=== PATIENT | male | born 1950 | race Hispanic/Latino ===

== ENCOUNTER 2017-08-30 15:19 | Emergency (ER) | payer SELFPAY ==
--- NOTE | 2017-08-30 16:10 | RAD REPORT ---
EXAM DESCRIPTION: Josiah Single View08/30/2017 4:04 pm CLINICAL HISTORY: Chest pain COMPARISON: none FINDINGS: The lungs appear clear of acute infiltrate. Nodular opacity within the left lung probably represents a granuloma. The heart is normal size IMPRESSION: No acute abnormalities displayed
[2017-08-30 16:46] LABS: Absolute Lymphocytes (CBC) 1.6 K/uL (0.7-4.9); Absolute Monocytes 0.5 K/uL (0.1-1.3); Basophils % 2.1 % (0-1.3); Eosinophils % 2.9 % (0-4.4); Hematocrit 31.8 % (39.6-49.0); Lymphocytes % 36.7 % (15.3-44.8); MCH 27.4 pg (27.0-35.0); MCV 86.6 fL (80-100); MPV 8.2 fL (7.6-11.3); RBC Red Blood Cell Count 3.68 M/uL (4.33-5.43)
[2017-08-30 16:49] LABS: Protime INR 1.11
[2017-08-30 17:01] LABS: Bicarbonate 25 mEq/L (21-31); Glucose Level 102 mg/dL (65-120); Lipase 32 U/L (22-51); Potassium 3.3 mEq/L (3.6-5.0); Sodium Level 139 mEq/L (135-145)
[2017-08-30 17:07] LABS: ALT/SGPT 28 IU/L (10-60); AST/SGOT 78 IU/L (10-42); Albumin 4.2 g/dL (3.2-5.5); Alkaline Phosphatase 127 IU/L (42-121); BUN Blood Urea Nitrogen 7 mg/dL (6-20); Bilirubin Direct 0.1 mg/dL (0-0.2); Bilirubin Total 0.4 mg/dL (0.3-1.2); Creatine Phosphokinase 383 IU/L (22-269); Magnesium 1.6 mg/dL (1.8-2.5); Protein, Total 8.6 g/dL (6.0-8.3)
[2017-08-30 17:10] LABS: CKMB Creatine Kinase MB 7.6 ng/ml (0.3-4.0)
[2017-08-30 17:13] LABS: Alcohol Serum/Plasma 184 mg/dl
[2017-08-30] MEDS ORDERED: THIAMINE 200 MG/2 ML INJ ONE (17:40)
[2017-08-30] MEDS ORDERED: POTASSIUM 25 MEQ EFFERV TAB ONE (17:40)
[2017-08-30] MEDS ORDERED: NA CHLORIDE 0.9% 1,000 ML ONE (17:40)
[2017-08-30] MEDS ORDERED: PANTOPRAZOLE 40 MG INJ ONE (17:40)
[2017-08-30] MEDS ORDERED: Magnesium Sulfate 2gm IVPB 2 G/50 ML BAG IV ONE (17:40)
[2017-08-30 18:20] LABS: Urine Blood NEGATIVE (NEG); Urine Glucose NEGATIVE (NEG); Urine Protein NEGATIVE (NEG); Urine pH 6.5 (5.0-7.0)
--- NOTE | 2017-08-30 19:08 | RAD REPORT ---
EXAM DESCRIPTION: CTAbdomen Pelvis W Contrast - 08/30/2017 7:02 pm CLINICAL HISTORY: Abdominal pain. COMPARISON: None. TECHNIQUE: Biphasic CT imaging of the abdomen and pelvis was performed with 100 ml non-ionic IV cont rast. All CT scans are performed using dose optimization technique as appropriate and may include automated exposure control or mA/KV adjustment according to patient size. FINDINGS: The lung bases are clear. The liver demonstrates diffuse fatty infiltration. The spleen, pancreas, adrenal glands and kidneys a re within normal limits. No bowel obstruction, free air, free fluid or abscess. Prominent colonic diverticulosis is seen witho ut diverticulitis. The appendix is normal. No evidence of significant lymphadenopathy. No suspicious bony findings. IMPRESSION: No acute intra-abdominal or pelvic finding. Fatty liver.
--- NOTE | 2017-08-30 19:47 | EKG ---
Test Date: 2017-08-30 Test Time: 16:25:49 Health Promotion Specialist: MIK MEASUREMENT RESULTS: Intervals: Rate: 58 IL: 154 QRSD: 74 QT: 458 QTc: 449 [place]: P: 63 IL: 154 QRS: -1 T: 41 INTERPRETIVE STATEMENTS: Sinus bradycardia Nonspecific T wave abnormality Abnormal ECG No previous ECG available for comparison Electronically Signed On 08-30-17 19:47:10 CDT by Chino Greenfield
--- NOTE | 2017-08-30 20:37 | EDPHYS ---
Physician Documentation [facility] Name: Uriel Goldman Age: 67 yrs Sex: Male : 1950 Arrival Date: 08/30/2017 Time: 15:30 Bed 19 Private MD: ED Physician Ciaran Haro HPI: 08/30 15:45 This 67 yrs old Male presents to ER via EMS with complaints of Bloody Stools. cp 15:45 The patient presents to the emergency department with rectal bleeding, a moderate cp amount, dark red blood with bowel movement with multiple such episodes. Onset: The symptoms/episode began/occurred 2 day(s) ago. Abdominal pain: described as achy. 15:45 Associated signs and symptoms: Pertinent positives: alcohol abuse, Pertinent negatives: cp chest pain, constipation, fever, syncope, near-syncope, vomiting. 15:45 Severity of symptoms: in the emergency department the symptoms are unchanged despite cp home interventions. Historical: - Allergies: 15:34 No Known Allergies; hb - Home Meds: 15:34 None [Active]; hb - PMHx: 15:34 Alcoholism; hb - Immunization history:: Adult Immunizations up to date. - Social history:: Smoking status: Patient/guardian denies using tobacco. ROS: 15:52 Constitutional: Negative for fever. cp 15:52 Abdomen/GI: Positive for abdominal pain, rectal bleeding, Negative for vomiting. cp 15:52 Unable to obtain ROS due to patient intoxicated. Exam: 15:55 Constitutional: The patient appears in no acute distress, alert, awake, cp non-diaphoretic, non-toxic, well developed, well nourished. 15:55 Head/Face: Normocephalic, atraumatic. cp 15:55 Eyes: Periorbital structures: appear normal, Pupils: equal, round, and reactive to light and accomodation, Conjunctiva: normal, no exudate, no injection, Sclera: no appreciated abnormality, Lids and lashes: appear normal, bilaterally. 15:55 ENT: External ear(s): are unremarkable, Ear canal(s): are normal, clear, TM's: bulging, is not appreciated, bilaterally, dullness, bilaterally, erythema, that is mild, bilaterally, Nose: is normal, Mouth: Lips: moist, Oral mucosa: moist, Posterior pharynx: Airway: no evidence of obstruction, patent, swelling, is not appreciated, erythema, is not appreciated, exudate, is not appreciated. 15:55 Neck: ROM/movement: is normal, is supple, without pain, no range of motions limitations, no meningismus, no nuchal rigidity. 15:55 Chest/axilla: Inspection: normal, Palpation: is normal, no crepitus, no tenderness. 15:55 Cardiovascular: Rate: normal, Rhythm: regular, Edema: is not appreciated, JVD: is not appreciated. 15:55 Respiratory: the patient does not display signs of respiratory distress, Respirations: normal, no use of accessory muscles, no retractions, no splinting, no tachypnea, labored breathing, is not present, Breath sounds: are clear throughout, no decreased breath sounds, no stridor, no wheezing. 15:55 Abdomen/GI: Inspection: abdomen appears normal, Bowel sounds: active, all quadrants, Palpation: soft, in all quadrants, mild abdominal tenderness, in all quadrants, rebound tenderness, is not appreciated, involuntary guarding, is not appreciated, Rectal exam: Stool: guaiac positive, maroon. 15:55 Back: pain, is absent, ROM is normal. 15:55 Skin: cellulitis, is not appreciated, no rash present. 15:55 Neuro: Motor: moves all fours, strength is normal. 15:55 Psych: Affect is calm, Judgement / Insight is impaired. Delusions/hallucinations are not present. Vital Signs: 15:33 BP 126 / 86; Pulse 88; Resp 16; Temp 98; Pulse Ox 100% on R/A; Pain 3/10; hb 16:30 BP 120 / 62; Pulse 86; Resp 16; Pulse Ox 100% on R/A; hb 17:38 BP 133 / 83; Pulse 56; Resp 16; Pulse Ox 98% on R/A; mh5 18:06 BP 133 / 78; Pulse 66; Resp 15; Pulse Ox 100% on R/A; hb 18:29 BP 135 / 81; Pulse 68; Resp 15; Pulse Ox 100% on R/A; hb 19:15 BP 133 / 79; Pulse 67; Resp 16; Pulse Ox 97% ; bp 20:15 BP 132 / 81; Pulse 57; Resp 14; Pulse Ox 97% ; bp MDM: 15:33 Patient medically screened. cp 19:20 Data reviewed: vital signs, nurses notes, lab test result(s), radiologic studies, CT cp scan, plain films. 19:20 Test interpretation: by ED physician or midlevel provider: plain radiologic studies. cp 20:34 Physician consultation: was called at 20:34, was contacted at 20:34, regarding cp regarding transfer, to [facility]. DR Choi, hospitalist \T\[facility], will accept patient as transfer. 08/30 15:52 Order name: ETOH Level; Complete Time: 17:22 cp 08/30 15:52 Order name: Basic Metabolic Panel; Complete Time: 17:22 cp 08/30 17:22 Interpretation: Normal except: K 3.3; CRE 0.51. cp 08/30 15:52 Order name: CBC with Diff; Complete Time: 16:57 cp 08/30 16:57 Interpretation: Normal except: RBC 3.68; HGB 10.1; HCT 31.8; MCHC 31.6; RDW 16.2; BASO% cp 2.1. 08/30 15:52 Order name: Ckmb; Complete Time: 17:22 cp 08/30 17:22 Interpretation: Abnormal: CKMB 7.6. cp 08/30 15:52 Order name: CPK; Complete Time: 17:22 cp 08/30 17:23 Interpretation: Abnormal: CPK 383. cp 08/30 15:52 Order name: LFT's; Complete Time: 17:22 cp 08/30 17:23 Interpretation: Normal except: SGOT 78; ALK 127; TP 8.6; GLOB 4.4; A/G 1.0. cp 08/30 15:52 Order name: Magnesium; Complete Time: 17:22 cp 08/30 17:23 Interpretation: Abnormal: MG 1.6. cp 08/30 15:52 Order name: PT-INR; Complete Time: 16:57 cp 08/30 17:23 Interpretation: Abnormal: PT 13.1. cp 08/30 15:52 Order name: Ptt, Activated; Complete Time: 16:57 cp 08/30 15:52 Order name: Troponin (emerg Dept Use Only); Complete Time: 17:22 cp 08/30 15:52 Order name: Lipase; Complete Time: 17:22 cp 08/30 17:22 Order name: Type And Screen; Complete Time: 19:15 cp 08/30 18:09 Order name: Urine Dipstick--Ancillary (enter results); Complete Time: 18:42 bd 08/30 18:42 Interpretation: Reviewed. 08/30 15:52 Order name: XRAY Chest (1 view); Complete Time: 16:57 cp 08/30 15:52 Order name: EKG; Complete Time: 15:53 cp 08/30 15:52 Order name: Cardiac monitoring; Complete Time: 16:47 cp 08/30 15:52 Order name: EKG - Nurse/Tech; Complete Time: 16:47 cp 08/30 15:52 Order name: IV Saline Lock; Complete Time: 16:47 cp 08/30 15:52 Order name: Labs collected and sent; Complete Time: 16:47 cp 08/30 15:52 Order name: O2 Per Protocol; Complete Time: 15:55 cp 08/30 15:52 Order name: O2 Sat Monitoring; Complete Time: 15:55 cp 08/30 16:20 Order name: CT Abd/Pelvis - W/Contrast; Complete Time: 19:15 cp 08/30 19:06 Order name: ABO/RH no charge; Complete Time: 19:15 EDMS 08/30 20:13 Order name: Hemoglobin 08/30 20:13 Order name: Hematocrit 08/30 15:52 Order name: Urine Dipstick-Ancillary (obtain specimen); Complete Time: 18:40 cp Administered Medications: 17:44 Drug: ProTONIX 40 mg Route: IVP; Site: left forearm; hb 18:39 Follow up: Response: No adverse reaction hb 17:44 Drug: Thiamine 100 mg Route: IM; Site: Other; hb 18:39 Follow up: Response: No adverse reaction hb 17:56 Drug: Magnesium Sulfate 2 grams Route: IVPB; Infused Over: 2 hrs; Site: left forearm; hb 21:42 Follow up: IV Status: Completed infusion bp 17:56 Drug: Potassium Effervescent Tablet 25 mEq Route: PO; hb 18:39 Follow up: Response: No adverse reaction hb Disposition: 22:00 Chart complete. 08/31 18:44 Co-signature as Attending Physician, Ciaran Haro MD. Disposition: 08/30/17 20:36 Transfer ordered to [facility]. Diagnosis are Gastrointestinal hemorrhage, unspecified, Alcohol abuse with intoxication. - Reason for transfer: Higher level of care. - Accepting physician is Choi. - Condition is Stable. - Problem is new. - Symptoms are unchanged. Signatures: Dispatcher [employer] EDMS Randy Bonilla PA PA cp Baxter, Heather, DEBI RN Ciaran Haro MD MD Theo Kmainski RN RN bp Corrections: (The following items were deleted from the chart) 08/30 21:43 20:36 08/30/2017 20:36 Transfer ordered to [facility]. Diagnosis is bp Gastrointestinal hemorrhage, unspecified; Alcohol abuse with intoxication. Reason for transfer: Higher level of care. Accepting physician is Choi. Condition is Stable. Problem is new. Symptoms are unchanged. cp
--- NOTE | 2017-08-30 20:37 | ER ---
Nurse's Notes [facility] Name: Uriel Goldman Age: 67 yrs Sex: Male : 1950 Arrival Date: 08/30/2017 Time: 15:30 Bed 19 Private MD: Diagnosis: Gastrointestinal hemorrhage, unspecified;Alcohol abuse with intoxication Presentation: 08/30 15:32 Presenting complaint: EMS states: Bright red bloody stools x 2 days. Recently seen by urgent care and PCP for same s/s. Transition of care: patient was not received from another setting of care. Onset of symptoms is unknown. Initial Sepsis Screen: Does the patient meet any 2 criteria? No. Patient's initial sepsis screen is negative. Does the patient have a suspected source of infection? No. Patient's initial sepsis screen is negative. Care prior to arrival: None. 15:32 Method Of Arrival: EMS: [facility] 15:32 Acuity: DARREN 3 hb Historical: - Allergies: 15:34 No Known Allergies; hb - Home Meds: 15:34 None [Active]; hb - PMHx: 15:34 Alcoholism; hb - Immunization history:: Adult Immunizations up to date. - Social history:: Smoking status: Patient/guardian denies using tobacco. Screenin:34 Abuse screen: Denies threats or abuse. Denies injuries from another. Nutritional hb screening: No deficits noted. Tuberculosis screening: No symptoms or risk factors identified. Fall Risk None identified. Assessment: 15:34 General: Appears in no apparent distress. Behavior is calm, cooperative. Pain: Pain hb currently is 3 out of 10 on a pain scale. Neuro: Level of Consciousness is awake, alert, obeys commands, Oriented to person, place, time, situation. Cardiovascular: Heart tones S1 S2 present Capillary refill < 3 seconds Patient's skin is warm and dry. Respiratory: Airway is patent Trachea midline Respiratory effort is even, unlabored, Respiratory pattern is regular, symmetrical, Breath sounds are clear bilaterally. GI: Abdomen is non-distended, Bowel sounds present X 4 quads. Abd is soft and non tender X 4 quads. Reports lower abdominal pain, upper abdominal pain, bloody stool. : No signs and/or symptoms were reported regarding the genitourinary system. EENT: No signs and/or symptoms were reported regarding the EENT system. Derm: No signs and/or symptoms reported regarding the dermatologic system. Skin is intact, is healthy with good turgor, Skin is pink, warm \T\ dry. Musculoskeletal: No signs and/or symptoms reported regarding the musculoskeletal system. 16:30 Reassessment: Patient appears in no apparent distress at this time. No changes from hb previously documented assessment. Patient and/or family updated on plan of care and expected duration. Pain level reassessed. 17:30 Reassessment: Patient appears in no apparent distress at this time. No changes from hb previously documented assessment. Patient and/or family updated on plan of care and expected duration. Pain level reassessed. 17:58 Reassessment: Pt finished drinking oral contrast at 1700, CT dept notified. hb 18:29 Reassessment: Patient appears in no apparent distress at this time. Patient and/or hb family updated on plan of care and expected duration. Pain level reassessed. Patient is alert, oriented x 3, equal unlabored respirations, skin warm/dry/pink. 19:05 Reassessment: RECD REPORT FROM ADRIANE CARRERA. 67YO HM P/W BLOODY STOOLS AND ETOHISM. PT bp CURRENTLY IN CT. RESULTS PENDING. 20:15 Reassessment: PT RESTING QUIETLY, F/U LABS IN PROCESS. bp 21:40 Reassessment: [facility] AT B/S FOR TRANSPORT. bp Vital Signs: 15:33 BP 126 / 86; Pulse 88; Resp 16; Temp 98; Pulse Ox 100% on R/A; Pain 3/10; hb 16:30 BP 120 / 62; Pulse 86; Resp 16; Pulse Ox 100% on R/A; hb 17:38 BP 133 / 83; Pulse 56; Resp 16; Pulse Ox 98% on R/A; mh5 18:06 BP 133 / 78; Pulse 66; Resp 15; Pulse Ox 100% on R/A; hb 18:29 BP 135 / 81; Pulse 68; Resp 15; Pulse Ox 100% on R/A; hb 19:15 BP 133 / 79; Pulse 67; Resp 16; Pulse Ox 97% ; bp 20:15 BP 132 / 81; Pulse 57; Resp 14; Pulse Ox 97% ; bp ED Course: 15:30 Patient arrived in ED. hb 15:33 Randy Bonilla PA is PHCP. cp 15:33 Ciaran Haro MD is Attending Physician. cp 15:33 Triage completed. hb 15:34 Arm band placed on right wrist. hb 15:36 Patient has correct armband on for positive identification. Placed in gown. Bed in low hb position. Call light in reach. Side rails up X 1. 15:55 Adriane Wiley, RN is Primary Nurse. hb 16:04 XRAY Chest (1 view) In Process Unspecified. EDMS 16:20 Missed attempt(s): 22 gauge in right antecubital area. Bleeding controlled, band aid hb applied, catheter tip intact. 16:20 Missed attempt(s): 22 gauge in left forearm. Bleeding controlled, band aid applied, hb catheter tip intact. Missed attempt(s): 24 gauge in right forearm. Bleeding controlled, band aid applied, catheter tip intact. 16:25 Inserted saline lock: 22 gauge in left forearm, using aseptic technique. Blood hb collected. 16:32 EKG done, by lamination technician. reviewed by Ciaran Haro MD. 3 16:38 Oral contrast given. sw 16:45 Oral contrast reported to be complete. vm2 18:09 T\T\S collected, blood band applied to patient. mh5 18:[address] sw 19:00 Primary Nurse role handed off by Adriane Wiley RN bp 19:00 Theo Kaminski, DEBI is Primary Nurse. bp 19:[address] via wheelchair. vm2 19:01 CT completed. Patient tolerated procedure well. Patient moved back from CT. vm2 19:02 CT Abd/Pelvis - W/Contrast In Process Unspecified. EDMS 21:07 Report given to KARTHIKEYAN CARRERA, [facility] [id number]. bp 21:41 No provider procedures requiring assistance completed. Patient transferred, IV remains bp in place. Administered Medications: 17:44 Drug: ProTONIX 40 mg Route: IVP; Site: left forearm; hb 18:39 Follow up: Response: No adverse reaction hb 17:44 Drug: Thiamine 100 mg Route: IM; Site: Other; hb 18:39 Follow up: Response: No adverse reaction hb 17:56 Drug: Magnesium Sulfate 2 grams Route: IVPB; Infused Over: 2 hrs; Site: left forearm; hb 21:42 Follow up: IV Status: Completed infusion bp 17:56 Drug: Potassium Effervescent Tablet 25 mEq Route: PO; hb 18:39 Follow up: Response: No adverse reaction hb Outcome: 20:36 ER care complete, transfer ordered by . cp 21:41 Transferred by ground EMS to [facility]. bp 21:41 Condition: stable 21:41 Instructed on the need for transfer. 21:43 Patient left the ED. bp Signatures: Dispatcher [employer] EDAniya Morrow Corey, PA PA cp Baxter, Heather, RN RN Evelyne Anand 5 Margo Escudero 2 Theo Kaminski RN RN bp Jennifer Corona 3 Corrections: (The following items were deleted from the chart) 15:55 15:32 Acuity: DARREN 4 hb hb
[2017-08-30 20:39] LABS: Hematocrit 28.6 % (39.6-49.0)
== END 2017-08-30 21:43 | disposition short-term general hospital (02) ==
LOC: ER 15:19
DX: K92.2 Gastrointestinal hemorrhage, unspecified (principal); F10.229 Alcohol dependence with intoxication, unspecified
CPT/HCPCS: 36415; 71045; 74177; 80048; 80076; 80320; 81003; 82550; 82553; 83690; 83735; 84484; 85014; 85018; 85025; 85610; 85730; 86850; 86900; 86901; 93005; 96365; 96366; 96372; 96375; 99285; C9113; J3411; J3475; J7030; Q9967